=== PATIENT | male | born 1980 | race Caucasian/White ===

== ENCOUNTER 2023-04-09 22:28 | Emergency (ER) | payer BC ==
[~2023-04-09] VITALS: Ht 182.9 cm; Wt 88.6 kg
[~2023-04-09 22:28] MED LIST: FLEXERIL 1010 MG/TAB PO; LIBRIUM 25M25 MG/CAP PO; MOTRIN 800800 MG/TAB PO
[2023-04-09 22:32] VITALS: TEMP 98.4
[2023-04-09 23:00] VITALS: BP 134/84; PULSE 104
== END 2023-04-09 23:00 | disposition home or self-care (01) ==
LOC: COL.ER 22:28
DX: M54.50 Low back pain, unspecified (principal); F10.20 Alcohol dependence, uncomplicated; F17.210 Nicotine dependence, cigarettes, uncomplicated

== ENCOUNTER 2023-06-25 19:05 | Emergency (ER) | payer OTHER ==
[~2023-06-25] VITALS: Ht 182.9 cm; Wt 90.9 kg
[2023-06-25 19:07] VITALS: BP 128/88; PULSE 88; TEMP 98.6
[2023-06-25] MEDS ORDERED: Folic Acid 1 MG,Thiamine 200 MG in NS 1,000 ML IV ONE (19:30)
[2023-06-25 19:31] LABS: BASO # 0.1 K/mm3 (0.0-0.2); BASO % 0.4 % (0.0-2.0); EOS % 0.3 % (0.0-4.0); GRAN # 9.7 K/mm3 (1.4-6.5); GRAN % 77.8 % (42.2-75.2); HEMATOCRIT 42.9 % (42.0-52.0); HEMOGLOBIN 15.3 g/dl (13.5-18.0); LYMPH # 2.1 K/mm3 (1.2-3.4); LYMPH % 16.9 % (20.0-51.0); MEAN CELL VOLUME 94 fl (80.0-100.0); MEAN CORPUSCULAR HEMOGLOBIN 33 pg (27-31); MEAN CORPUSCULAR HGB CONC 36 g/dl (33.0-37.0); MEAN PLATELET VOLUME 9.5 fl (7.4-10.4); MONO # 0.5 K/mm3 (0.1-0.6); MONO % 4.3 % (1.7-9.3); PLATELET COUNT 247 K/mm3 (130-400); RED BLOOD COUNT 4.59 M/mm3 (4.20-5.60); REDCELL DISTRIBUTION WIDTH-CV 11.9 % (11.5-14.5)
[2023-06-25 19:43] LABS: ACETAMINOPHEN < 7.0 ug/mL (10-30); ALANINE AMINOTRANSFERASE 128 U/L (0-55); ALBUMIN 3.5 gm/dL (3.5-5.0); ALKALINE PHOSPHATASE 111 U/L (40-150); ANION GAP 21 mmol/L (7-16); AST,SGOT 148 U/L (5-34); BILIRUBIN,TOTAL 0.4 mg/dL (0.2-1.2); BLOOD UREA NITROGEN 17 mg/dL (9-21); CALCIUM 8.1 mg/dL (8.4-10.2); CARBON DIOXIDE 17 mmol/L (22-29); CHLORIDE 96 mmol/L (98-107); GLUCOSE 79 mg/dL (70-99); MAGNESIUM 2.1 mg/dL (1.6-2.6); POTASSIUM 4.1 mmol/L (3.5-4.5); SODIUM 134 mmol/L (136-145); TOTAL PROTEIN 6.7 gm/dL (6.2-8.1)
[2023-06-25 19:44] LABS: SALICYLATE < 5.0 mg/dL (15.0-30.0)
[2023-06-25 19:45] LABS: ALCOHOL(ethanol),MEDICAL 386 mg/dL (0-10)
== END 2023-06-25 20:15 | disposition left against medical advice (07) ==
LOC: COL.ER 19:05
PROVIDERS: Nurse Practitioner
DX: F10.20 Alcohol dependence, uncomplicated (principal); F17.200 Nicotine dependence, unspecified, uncomplicated; Y90.8 Blood alcohol level of 240 mg/100 ml or more

== ENCOUNTER 2023-07-03 22:08 | Inpatient (IN) | payer OTHER ==
[~2023-07-03] VITALS: Ht 185.4 cm; Wt 85.5 kg
[2023-07-03 22:40] LABS: BASO % 0.3 % (0.0-2.0); EOS % 0.1 % (0.0-4.0); GRAN # 5.3 K/mm3 (1.4-6.5); GRAN % 73.1 % (42.2-75.2); HEMATOCRIT 48.9 % (42.0-52.0); HEMOGLOBIN 17.3 g/dl (13.5-18.0); LYMPH # 1.3 K/mm3 (1.2-3.4); LYMPH % 18.1 % (20.0-51.0); MEAN CELL VOLUME 94 fl (80.0-100.0); MEAN CORPUSCULAR HEMOGLOBIN 33 pg (27-31); MEAN CORPUSCULAR HGB CONC 35 g/dl (33.0-37.0); MEAN PLATELET VOLUME 10.1 fl (7.4-10.4); MONO # 0.6 K/mm3 (0.1-0.6); MONO % 7.7 % (1.7-9.3); PLATELET COUNT 135 K/mm3 (130-400); RED BLOOD COUNT 5.22 M/mm3 (4.20-5.60); REDCELL DISTRIBUTION WIDTH-CV 11.8 % (11.5-14.5)
[2023-07-03] MEDS ORDERED: Folic Acid 1 MG,Thiamine 200 MG in NS 1,000 ML IV ONE (22:45)
[2023-07-03] MEDS ORDERED: Pantoprazole 40 MG in NS 10 ML IV ONE (22:45)
[2023-07-03] MEDS ORDERED: Ondansetron 4 MG/2 ML VIAL IV PRN (22:45)
[2023-07-03 22:52] LABS: ALBUMIN 3.8 gm/dL (3.5-5.0); BILIRUBIN,TOTAL 0.7 mg/dL (0.2-1.2); CALCIUM 9.4 mg/dL (8.4-10.2); CREATININE, serum 0.79 mg/dL (0.72-1.25); POTASSIUM 4.2 mmol/L (3.5-4.5); TOTAL PROTEIN 7.8 gm/dL (6.2-8.1)
[2023-07-03 23:09] LABS: TRICYCLIC ANTIDEPRESS URINE NEGATIVE (NEGATIVE)
[2023-07-03] MEDS ORDERED: NS 1,000 ML IV ONE (23:15)
[2023-07-03] MEDS ORDERED: BUSPAR 30MG30 MG/TAB PO (23:59)
[2023-07-04] VITALS (18 sets, daily range): BP systolic 120–153; BP diastolic 74–91; PULSE 99–117; TEMP 97.3–98.7
[2023-07-04] MEDS ORDERED: NORVASC 5MG5 MG/TAB PO (00:01)
[2023-07-04] MEDS ORDERED: EFFEXOR XR75 MG/CAP PO (00:01)
[2023-07-04] MEDS ORDERED: NEURONTIN300 MG/CAP PO (00:02)
[2023-07-04] MEDS ORDERED: STRATTERA 40MG40 MG PO (00:02)
[2023-07-04] MEDS ORDERED: PRINIVIL5 MG PO (00:03)
[2023-07-04] MEDS ORDERED: DESYREL 100MG100 MG PO (00:04)
[2023-07-04] MEDS ORDERED: ATARAX50 MG PO (00:04)
[2023-07-04] MEDS ORDERED: REVIA 50MG TABL50 MG PO (00:05)
[2023-07-04] MEDS ORDERED: TOPAMAX25 M1 PO (00:05)
[2023-07-04] MEDS ORDERED: MOBIC15 MG PO (00:06)
[2023-07-04] MEDS ORDERED: FLEXERIL 1010 MG/TAB PO (00:07)
[2023-07-04] MEDS ORDERED: NEURONTIN600 MG/TAB PO (00:07)
[2023-07-04] MEDS ORDERED: PRINIVIL10 MG PO (00:07)
[2023-07-04] MEDS ORDERED: PRILOSEC 20MG20 MG PO (00:08)
[2023-07-04] MEDS ORDERED: INDERAL40 MG PO (00:09)
[2023-07-04] MEDS ORDERED: LIPITOR 10MG10 MG PO (00:09)
[2023-07-04] MEDS ORDERED: D5NS 1,000 ML IV SCH (00:45)
[2023-07-04] MEDS ORDERED: LORazepam 2 MG/ML 1 ML VIAL IM PRN (01:15)
[2023-07-04] MEDS ORDERED: LORazepam 2 MG/ML 1 ML VIAL IV PRN (01:15)
[2023-07-04] MEDS ORDERED: Mag/Al Hydrox/Simeth Susp 30 ML CUP PO PRN (01:15)
[2023-07-04] MEDS ORDERED: LORazepam 1 MG TAB PO PRN (01:15)
[2023-07-04] MEDS ORDERED: Ondansetron 4 MG/2 ML VIAL IV PRN (01:15)
[2023-07-04] MEDS ORDERED: Morphine 4 MG/ML VIAL IV PRN (01:15)
[2023-07-04] MEDS ORDERED: diazePAM 10 MG TAB PO SCH (01:15)
[2023-07-04] MEDS ORDERED: Iohexol 300 - 100 ML VIAL IV ONE (01:19)
[2023-07-04 01:56] LABS: PROTHROMBIN TIME 10.7 SECONDS (9.7-12.8)
[2023-07-04 01:57] LABS: PARTIAL THROMBOPLASTIN TIME 29.3 SECONDS (26.0-37.0)
[2023-07-04] MEDS ORDERED: ZOFRAN 4MG T4 MG/TAB PO (02:19)
[2023-07-04] MEDS ORDERED: TYLENOL 500MG500 MG PO (02:29)
--- NOTE | 2023-07-04 02:51 | NUR ---
Received report from JAZ Blunt from ED over the phone at 0059. Pt arrived on the unit at 0123. Pt is alert and oriented and able to answer questions. Pt arrived with phone, wallet, clothes, and all the home meds in a bag. Pt is now resting in bed with the call light within reach and bed alarms on.
[2023-07-04 03:41] LABS: COLLECTION METHOD CLEAN CATCH
[2023-07-04 04:03] LABS: PH 5.5 (5.0-8.5); URINE APPEARANCE CLEAR (CLEAR/HAZY); URINE BLOOD 3+ (NEGATIVE); URINE COLOR YELLOW (YELLOW); URINE GLUCOSE NEGATIVE (NEGATIVE); URINE KETONE 4+ (NEGATIVE); URINE NITRATE NEGATIVE (NEGATIVE); URINE PROTEIN(semi-quant) 2+ (NEGATIVE)
--- NOTE | 2023-07-04 06:25 | NUR ---
Pt has had an uneventful rest of the night. Pt's vitals were stable at each check. Pt has D5NS running at this time through the IV, blood sugar checks Q6HR. Pt is currently scoring in CIWA at 0200 a 1, 0400 a 0, 0600 a 0. Pt is currently sleeping in bed with the call light within reach and bed alarms on. Will give report to day shift nurse.
[2023-07-04] MEDS ORDERED: Multivitamin TAB PO SCH (08:00)
--- NOTE | 2023-07-04 08:00 | NUR ---
Pt assessment complete. Pt laying in bed. Pt reporting mild back pain from laying down. Pt on tele. Currently NPO, dicussed concerns with Pt regarding NPO status due to pancreatitis and giving bowels a rest. Provider talked with Pt, switched diet to AHA. Pt worked with PT this AM. Tele nurse notified RN regarding steady tachycardia since PT. Pt has call light in reach, seizure precautions in place, and bed alarm on.
--- NOTE | 2023-07-04 08:25 | NUR ---
Rounded on patient with JAZ Markham. Agree with assessment as charted. Bed in lowest position with call light within reach. Fall precautions and seizure precautions in place.
[2023-07-04] MEDS ORDERED: Polyethylene Glycol 3350 17 GM PDS PO PRN (08:30)
[2023-07-04] MEDS ORDERED: Folic Acid 1 MG TAB PO SCH (09:00)
[2023-07-04] MEDS ORDERED: Pantoprazole 40 MG in NS 10 ML IV SCH (09:00)
[2023-07-04] MEDS ORDERED: Docusate Sodium 100 MG CAP PO SCH (09:00)
[2023-07-04] MEDS ORDERED: Nicotine 21 MG DAILY PATCH TD SCH (09:00)
[2023-07-04] MEDS ORDERED: Thiamine 100 MG TAB PO SCH (09:00)
--- NOTE | 2023-07-04 10:09 | NUR ---
CIWA -1. Pt denies tactile hallucinations but did report tingling in hands. Changed Pt gown. Asked Pt regarding home meds if we could take them to Pharmacy. Pt agreed. Pt up in chair with call light in reach. Door open and visible from nurse's station.
[2023-07-04] MEDS ORDERED: EFFEXOR-XR150 MG PO (12:50)
[2023-07-04] MEDS ORDERED: Lisinopril 10 MG TAB PO SCH (13:24)
[2023-07-04] MEDS ORDERED: amLODIPine 5 MG TAB PO SCH (13:24)
[2023-07-04] MEDS ORDERED: busPIRone 7.5 MG TABLET PO SCH (13:24)
[2023-07-04] MEDS ORDERED: NS 1,000 ML IV SCH (13:45)
[2023-07-04] MEDS ORDERED: Gabapentin 300 MG CAP PO SCH (14:00)
--- NOTE | 2023-07-04 14:25 | NUR ---
CIWA - 9. Administered 1 mg PO ativan. Pt sitting up in bed, moving more than normal. Administered home meds as per EMAR. Pt has call light in reach.
--- NOTE | 2023-07-04 15:24 | NUR ---
Pt reporting nausea. Administered Zofran and gave Pt basin. Pt has call light in reach.
--- NOTE | 2023-07-04 15:55 | NUR ---
social worker palliative care met with patient to discuss discharge planning. Patient lives in [place] with his , Sari, P# [phone]. PCP is Dr. Frederick, pharmacy is [facility]. No issues affording medications. Insurance is [employer]. Patient reports he has no DPOA-HC not currently interested in completing one. No DME. Patient reports to be independent with ADLS and transportation to and from appointments. Patient would like to return home at time of discharge. JANET provided drug and alcohol resources for the area. Patient understood and accepted the information for resources. SW contacted patient's , Sari. Sari reports the information above is correct. Sari stated [facility] contacted her and would like to be updated when patient is ready for discharge. Sari expressed patient is receiving outpatient treatment through [facility] for alcohol. Discharge plan: Home
--- NOTE | 2023-07-04 19:25 | NUR ---
PATIENT RESTING IN BED WITH TV ON WITH NO FAMILY PRESENT WITH NO ACUTE DISTRESS NOTED. PATIENT ON ROOM AIR. NS INFUSING INTO LEFT FOREARM WITH NO COMPLICATIONS NOTED. INT TO RIGHT AC INTACT WITH NO COMPLICATIONS NOTED. SEIZURE PADS PRESENT ON BED. PATIENT DENIES ANY NEEDS AT THIS TIME. PATIENT CARE ASSUMED FROM [facility] AT THIS TIME. BED IN LOW POSITION WITH WHEELS LOCKED WITH RAILS UP X3 AND CALL LIGHT WITHIN REACH. BED ALARM ON.
[2023-07-04 19:55] LABS: BASO % 0.4 % (0.0-2.0); EOS % 0.8 % (0.0-4.0); GRAN % 75.7 % (42.2-75.2); LYMPH # 0.9 K/mm3 (1.2-3.4); LYMPH % 16.9 % (20.0-51.0); MEAN CELL VOLUME 92 fl (80.0-100.0); MEAN CORPUSCULAR HGB CONC 36 g/dl (33.0-37.0); MEAN PLATELET VOLUME 10.5 fl (7.4-10.4); MONO # 0.3 K/mm3 (0.1-0.6); MONO % 5.8 % (1.7-9.3); PLATELET COUNT 86 K/mm3 (130-400); RED BLOOD COUNT 3.74 M/mm3 (4.20-5.60); REDCELL DISTRIBUTION WIDTH-CV 11.9 % (11.5-14.5)
[2023-07-04 19:59] LABS: HEMATOCRIT 34.3 % (42.0-52.0); HEMOGLOBIN 12.4 g/dl (13.5-18.0); MEAN CORPUSCULAR HEMOGLOBIN 33 pg (27-31)
--- NOTE | 2023-07-04 20:02 | NUR ---
PATIENT SITTING UP IN BED WATCHING TV AT THIS TIME WITH NO ACUTE DISTRESS NOTED. PATIENT ON ROOM AIR. INT TO RIGHT AC INTACT AND NS INFUSING INTO LEFT FOREARM WITH NO COMPLICATIONS NOTED. ASSESSMENT COMPLETED AT THIS TIME. PATIENT TOLERATED WELL. PATIENT DENIES ANY NEEDS AT THIS TIME. BED IN LOW POSITION WITH WHEELS LOCKED WITH RAILS UP X3 AND CALL LIGHT WITHIN REACH. BED ALARM ON.
[2023-07-04 20:07] LABS: ALBUMIN 2.9 gm/dL (3.5-5.0); BILIRUBIN,TOTAL 0.6 mg/dL (0.2-1.2); CALCIUM 8.5 mg/dL (8.4-10.2); CREATININE, serum 0.9 mg/dL (0.72-1.25)
--- NOTE | 2023-07-04 20:10 | NUR ---
PATIENT RESTING IN BED WITH TV ON WITH NO ACUTE DISTRESS NOTED. PATIENT ON ROOM AIR. INT TO RIGHT AC INTACT WITH NO COMPLICATIONS NOTED. NS INFUSING INTO LEFT FOREARM WITH NO COMPLICAITONS NOTED. MEDICATION ADMINISTRATION COMPLETED AT THIS TIME. PATIENT TOLERATED WELL. ALL NEEDS MET. BED IN LOW POSITION WITH WHEELS LOCKED WITH RAILS UP X3 AND CALL LIGHT WITHIN REACH.
--- NOTE | 2023-07-04 20:24 | NUR ---
HOSPITALIST ANKUSH SHARP CALL ABOUT PATIENT PLATELETS OF 86 WITH DOSE OF LOVENOX SCHEDULED FOR 2100. ORDER RECIEVED TO HOLD 2100 DOSE OF LOVENOX FOR 07/04/23.
[2023-07-04] MEDS ORDERED: traZODone 100 MG TAB PO SCH (21:00)
[2023-07-04] MEDS ORDERED: Topiramate 25 MG TAB PO SCH (21:00)
[2023-07-05] VITALS (8 sets, daily range): BP systolic 121–144; BP diastolic 78–87; PULSE 95–109; TEMP 91–98.3
[2023-07-05 07:20] LABS: BASO % 0.2 % (0.0-2.0); EOS # 0.1 K/mm3 (0.0-0.7); EOS % 1.3 % (0.0-4.0); GRAN # 3.6 K/mm3 (1.4-6.5); GRAN % 66.4 % (42.2-75.2); HEMOGLOBIN 12.4 g/dl (13.5-18.0); LYMPH # 1.3 K/mm3 (1.2-3.4); LYMPH % 24.5 % (20.0-51.0); MEAN CELL VOLUME 92 fl (80.0-100.0); MEAN CORPUSCULAR HEMOGLOBIN 33 pg (27-31); MEAN CORPUSCULAR HGB CONC 36 g/dl (33.0-37.0); MEAN PLATELET VOLUME 10.6 fl (7.4-10.4); MONO # 0.4 K/mm3 (0.1-0.6); PLATELET COUNT 80 K/mm3 (130-400); RED BLOOD COUNT 3.77 M/mm3 (4.20-5.60); REDCELL DISTRIBUTION WIDTH-CV 11.7 % (11.5-14.5)
[2023-07-05 07:26] LABS: HEMATOCRIT 34.5 % (42.0-52.0)
[2023-07-05 07:37] LABS: ALBUMIN 2.8 gm/dL (3.5-5.0); BILIRUBIN,TOTAL 0.8 mg/dL (0.2-1.2); CALCIUM 8.5 mg/dL (8.4-10.2); CREATININE, serum 0.72 mg/dL (0.72-1.25); POTASSIUM 3.1 mmol/L (3.5-4.5); TOTAL PROTEIN 5.6 gm/dL (6.2-8.1)
--- NOTE | 2023-07-05 08:30 | NUR ---
Pt laying in bed. A&Ox4. VSS. S1S2. Lungs are clear. ABD is rounded, soft, non-tender. Palpable pulses in all extremities. Bilateral heals are dry and cracked with flaking skin. Lotion and mepalex in place. 22G in L forearm is patent. 20G in R AC is patent. Scabs on bilateral upper extremities. Pt appears calm. Discussed possible D/C with Dr Campuzano. AM meds administered as per EMAR. No further Pt needs at this time. Pt has call light in reach.
[2023-07-05] MEDS ORDERED: FOLIC ACID 11 MG/TA1 PO (09:28)
[2023-07-05] MEDS ORDERED: THIAMINE 1100 MG/TAB PO (09:28)
[2023-07-05] MEDS ORDERED: MULTI VITAMINS1 TAB PO (09:29)
[2023-07-05] MEDS ORDERED: *Potassium Replacement Protocol MC SCH (09:30)
[2023-07-05] MEDS ORDERED: ZOFRAN 4MG T4 MG/TAB PO (09:30)
[2023-07-05] MEDS ORDERED: Potassium Bicarbonate/Citrate 20 MEQ Effervescent TAB PO SCH (09:30)
--- NOTE | 2023-07-05 11:20 | NUR ---
Received D/C orders for Pt. Educated Pt on D/C information and follow up appointments. Answered Pt questions. Disconinued Pt IV from L forearm and R AC. Took Pt off tele. Pt transported to car via WC with family.
--- NOTE | 2023-07-05 11:43 | NUR ---
D: Initial visit: Contact Worker [employer] stopped by room on rounds. Pt was resting and content. A: Pt was born in [place] then moved to [place] before coming to [place]. Pt has no needs right now. 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 Contact Worker [employer] will follow up as needed.
== END 2023-07-05 11:20 | disposition home or self-care (01) | DRG 896 ==
LOC: COL.ER 22:08 → MEDICAL 07-04 00:25
PROVIDERS: Nurse Practitioner; Nurse Practitioner Family; Personal Emergency Response Attendant; ADMIT Hospitalist
DX: F10.121 Alcohol abuse with intoxication delirium (principal); K85.20 Alcohol induced acute pancreatitis without necrosis or infection; E87.29 Other acidosis; E44.0 Moderate protein-calorie malnutrition; E87.4 Mixed disorder of acid-base balance; F33.2 Major depressive disorder, recurrent severe without psychotic features; I10 Essential (primary) hypertension; Y90.8 Blood alcohol level of 240 mg/100 ml or more; E78.5 Hyperlipidemia, unspecified; F90.9 Attention-deficit hyperactivity disorder, unspecified type; F17.210 Nicotine dependence, cigarettes, uncomplicated; G40.909 Epilepsy, unspecified, not intractable, without status epilepticus; K21.9 Gastro-esophageal reflux disease without esophagitis; M25.511 Pain in right shoulder; R74.01 Elevation of levels of liver transaminase levels; F41.1 Generalized anxiety disorder; E87.8 Other disorders of electrolyte and fluid balance, not elsewhere classified; M85.80 Other specified disorders of bone density and structure, unspecified site; Z90.49 Acquired absence of other specified parts of digestive tract; Z91.030 Bee allergy status; Z79.899 Other long term (current) drug therapy; Z68.24 Body mass index [BMI] 24.0-24.9, adult
CPT/HCPCS: C9113; J1650; J2405; J3411; J7030; J7042; Q9967